=== PATIENT | female | born 1940 | race Caucasian/White ===

== ENCOUNTER 2021-12-16 10:48 | Outpatient (CLI) | payer MEDICARE, SELFPAY | END 2021-12-16 10:49 | disposition home or self-care (01) | LOC: NFLDREF 10:49 | PROVIDERS: Visit Provider Emergency Medicine | DX: N39.0 Urinary tract infection, site not specified (principal) | CPT/HCPCS: 87086; 87186 ==

== ENCOUNTER 2021-12-26 10:47 | Outpatient (CLI) | payer MEDICARE, SELFPAY | END 2021-12-26 10:48 | disposition home or self-care (01) | PROVIDERS: PCP Emergency Medicine; Visit Provider Emergency Medicine | DX: R35.0 Frequency of micturition (principal) | CPT/HCPCS: 87086 ==

== ENCOUNTER 2022-04-13 13:11 | Outpatient (RCR) | payer MEDICARE, SELFPAY ==
--- NOTE | 2022-04-09 15:36 | URNOTE ---
Request received for authorization for zoledronic acid (Reclast) ([id number]). Prior authorization not required per [facility] 2021 medical injection drug authorization list.
== END 2022-10-10 23:59 | disposition home or self-care (01) ==
LOC: CCIC 13:11
PROVIDERS: PCP Emergency Medicine; Visit Provider Emergency Medicine
DX: M81.0 Age-related osteoporosis without current pathological fracture (principal)
CPT/HCPCS: 96374; J3489

== ENCOUNTER 2022-04-16 09:20 | Outpatient (CLI) | payer MEDICARE, SELFPAY ==
[2022-04-16 14:20] LABS: Albumin* 4.7 g/dL (3.3-5.0); Chloride* 100 mmol/L (96-114); Sodium* 141 mmol/L (135-149)
[2022-04-16 14:21] LABS: Potassium* 4.2 mmol/L (3.6-5.1)
[2022-04-16 14:23] LABS: Alkaline Phosphatase* 96 U/L (40-150); Aspartate Amino Transferase* 38 U/L (12-35); Bilirubin Total* 0.6 mg/dL (0.1-1.5); Blood Urea Nitrogen* 25 mg/dL (7-30); Carbon Dioxide* 30 mmol/L (20-32); Creatinine* 0.8 mg/dL (0.5-1.5); Estimated Glomerular Filt Rate 74 ml/min; Glucose* 111 mg/dL (60-115); Total Protein* 7.3 g/dL (6.0-8.3)
[2022-04-16 14:24] LABS: Alanine Aminotransferase* 36 U/L (4-35); Calcium* 9.5 mg/dL (8.4-10.6)
[2022-04-16 14:56] LABS: Vitamin B12* 556 pg/mL (243-894)
[2022-04-17 02:54] LABS: Free T4 Free Thyroxine* 1.06 ng/dL (0.70-1.85)
== END 2022-04-16 09:21 | disposition home or self-care (01) ==
PROVIDERS: PCP Emergency Medicine; Visit Provider Emergency Medicine
DX: K21.9 Gastro-esophageal reflux disease without esophagitis (principal); I50.30 Unspecified diastolic (congestive) heart failure; R63.5 Abnormal weight gain
CPT/HCPCS: 80053; 82607; 84439; 84443

== ENCOUNTER 2022-04-21 11:09 | Outpatient (CLI) | payer MEDICARE, SELFPAY | END 2022-04-21 11:10 | disposition home or self-care (01) | LOC: FRMREF 04-24 10:01 | PROVIDERS: PCP Emergency Medicine; Visit Provider Family Medicine | DX: N39.0 Urinary tract infection, site not specified (principal) | CPT/HCPCS: 87086; 87186 ==

== ENCOUNTER 2022-05-04 11:03 | Outpatient (CLI) | payer MEDICARE, SELFPAY | END 2022-05-04 11:04 | disposition home or self-care (01) | LOC: FRMREF 05-11 13:54 | PROVIDERS: PCP Emergency Medicine; Visit Provider Family Medicine | DX: R82.90 Unspecified abnormal findings in urine (principal) | CPT/HCPCS: 87086; 87186 ==

== ENCOUNTER 2022-05-18 13:42 | Outpatient (CLI) | payer MEDICARE, SELFPAY | END 2022-05-18 13:43 | disposition home or self-care (01) | LOC: FRMREF 05-20 15:28 | PROVIDERS: PCP Emergency Medicine; Visit Provider Family Medicine | DX: N39.0 Urinary tract infection, site not specified (principal) | CPT/HCPCS: 87086 ==

== ENCOUNTER 2022-05-28 14:30 | Outpatient (CLI) | payer MEDICARE, SELFPAY | END 2022-05-28 14:31 | disposition home or self-care (01) | LOC: LKVREF 14:30 | PROVIDERS: PCP Emergency Medicine; Visit Provider Emergency Medicine | DX: N39.0 Urinary tract infection, site not specified (principal) | CPT/HCPCS: 87086; 87186 ==

== ENCOUNTER 2022-06-18 10:15 | Outpatient (CLI) | payer MEDICARE, SELFPAY | END 2022-06-18 10:16 | disposition home or self-care (01) | LOC: FRMREF 14:38 | PROVIDERS: PCP Emergency Medicine; Visit Provider Family Medicine | DX: N39.0 Urinary tract infection, site not specified (principal) | CPT/HCPCS: 87086 ==

== ENCOUNTER 2022-12-01 11:30 | Outpatient (CLI) | payer MEDICARE, SELFPAY ==
--- OUTSIDE RECORDS SUMMARY | 2022-12-02 01:50 | XMS_ITS | Continuity of Care Document ---
Author Name Unknown Organization [facility] Address [address] [address] [place] [address] Phone Care Team Providers Care Property Claims Manager Name Role Phone Shavonne Austin CRNA Unavailable Unavailable Allergies, Adverse Reactions, Alerts Substance Reaction Status Criticality morphine Itching Active No Information Influenza Virus Vaccines arm swelling Active No Information dipyridamole neck pain, nausea Active No Informa tion MEPERIDINE HCL rash Active No Informatio n PROCHLORPERAZINE MALEATE difficulty breathing Active No Information PRESERVATIVE FREE rash Resolved No Informa tion WARNIN allergy(ies) could not be collected because the type is not supported. Please contact the source practice for further details. Medications Medication Instructions Dosage Effective Dates (start - stop) Status Comments Crestor 20 mg tablet take 1 tablet by oral route every day 20 MG - Active Flonase Allergy Relief 50 mcg/actuation nasal spray,suspension inhale 2 spray by intranasal route every day in each nostril as needed as needed 100 MCG - Active Gaviscon 80 mg-14.2 mg chewable tablet take 3 tablet by oral route every day as needed as needed 3 tablet - Active spironolactone 25 mg tablet take 1 tablet by oral route every day 25 MG - Active furosemide 20 mg tablet take 1 tablet by oral route every day 20 MG - Active folic acid 800 mcg tablet take 1 tablet by oral route every day 0.8 MG - Active calcium citrate 200 mg (950 mg) tablet take 2 tablet by oral route 3 times every day for 1 day 2 tablet - Active latanoprost 0.005 % eye drops instill 1 drop by ophthalmic route every day into affected eye(s) in the evening 1.00 drop - Active pravastatin 40 mg tablet take 1 tablet by oral route every day 40 MG - Active NITROSTAT (unknown strength) place 1 tablet by sublingual route at the first sign of an attack; no more than 3 tabs are recommended within a 15 minute period. Not Available - Active metoprolol succinate ER 25 mg tablet,extended release 24 hr take 1 tablet by oral route every day 25 MG - Active Lo-Dose Aspirin 81 mg Tab, Delayed Release Take one tablet by mouth daily - Active MULTIVITAMINS (unknown strength) Take one tablet by mouth daily Not Available - Active TUMS (unknown strength) as needed Not Available - Active Carafate 1 gram Tab Use as directed - Acti ve Ativan 0.5 mg Tab as needed - Active Pepcid 20 mg tablet take 1 tablet by oral route 2 times every day 20 MG - No Longer Active Co Q-10 100 mg capsule take 1 tablet by oral route every day 1 tablet - No Longer Active FISH OIL (unknown strength) take 1 capsule by oral route 2 times every day Not Available - No Longer Active Procedures Procedure Date Colorectal Ca Screen Hi Risk I 20 Colonoscopy Flex; W/bx 1/mx Level Iv-surg Path Gross/micro 15 Sigmoidoscopy Flex; Dx (sep Pr 15 Offic/outpt E&m Estab Low-mod 0 G8447 Ko PH Monitor Ugi Endo; W/bx 1/mx Level Iv-surg Path Gross/micro 10 Offic/outpt E&m New Mod-hi G8447 Advance Directives Directive Yes / No Effective Date File Name No Information Encounters Encounter Description Practice Location Reason(s) For Visit Diagnoses Date Provider Providers Copied on Encounter [facility] JEREMY COLON [address] [address], [place], [id number], [place] tel:[phone] [facility] No Information 0 Norman Marvin. [address] [facility], [place], [place], [address], [place]. tel:[phone] Referring Provider: Araceli Medeiros, [address] [facility] [address], [place], [address] . tel:[phone] [facility], [address] [address], [place], [place], [address], [place] tel:[phone] [facility] Screening ColonoscopyPer keren history of colonic polypsEncounte r for screening for malignant neoplasm of colon 0 Miguel Charles. [address] [facility], [facility] [address], [place], [place], [address], [place]. [phone] Dawit Oliveira MD. tel:[phone] erring Provider: Referral Self. [facility], [address] [address], [place], [place], [address], [place] tel:[phone] [facility] No Information 0 Kirk Garces. [address] [facility], [address], [place], [place], [address], [place]. tel:[phone] [facility], [address] [address], [place], [address], [place] tel:[phone] [facility] Colon polypEncounter for screening for malignant neoplasm of colonBenign neoplasm of sigmoid colon 5 Edith Bowden. [address] [facility], [address], [place], [place], [address], [place]. tel:[phone] Referring Provider: Dawit Oliveira MD C, [address] , [place], [address]. tel:[phone] [facility], [address] [address], [place], [address], [place] tel:[phone] [facility] No Information 5 Kirk Garces. [address] [facility], [facility] [address], [place], [place], [address], [place]. tel:[phone] Referring Provider: Dawit Oliveira MD C, [address] [facility] [place], [address]. tel:[phone] Offic/outpt E&m Estab Low-mod [facility], [address] [address], [facility] [place] [address], [place] tel:[phone] [facility] check up, f/u to EGD (chief complaint) Chest Pain NosChest Pain Nos Jan- 5201 0 No Information Referring Provider: Wilfredo Ni, [address] [facility], [place], [address]. tel:[phone] [facility], [address] [address], [facility] [place], [address], [place] tel:[phone] [facility] No Information 0 Carlos Alberto Membreno. [address] [facility], [facility] [address], [place], [place], [address], [place]. tel:[phone] Referring Provider: Jluis Agrawal MD, [facility] [address], [place], [address] . tel:[phone] [facility], [address] [address], [facility] [place], [address], [place] tel:[phone] [facility] DuodenitisDuod enitis 0 Nghia Bazzi. [address] [facility], [facility] [address], [place], [place], [address], [place]. tel:[phone] Referring Provider: Jluis Agrawal MD, [address] [place] [address] [address], [place], [address] . tel:[phone] Offic/outpt E&m New Mod-hi [facility], [address] [address], [facility] [place], [address], [place] tel:[phone] [facility] Reflux symptoms (chief complaint) Chest Pain NosGastroesoph ageal Reflux 2-201 0 Link MD Bazzi. [address] [facility], [address] [address], [place], [place], [address], [place]. tel:[phone] Referring Provider: Wilfredo Rader MD C, [address] [facility], [place], [address]. tel:[phone] Family History Family Member Type Diagnosis Age At Onset Daughter Problem (finding) Alive and well First degree family history Problem (finding) GERD Brother Problem (finding) GERD Brother Problem (finding) unknown esophageal diso rder Mother Problem (finding) malignant neoplasm of k [place] Son Problem (finding) alcoholism First degree family history Problem (finding) No history of Crohn's Mother Problem (finding) First degree family history Problem (finding) No history of Ulcerative Colitis Son Problem (finding) Alive and well Father Problem (finding) Daughter Problem (finding) Irritable bowel disease First degree family history Problem (finding) No history of Cancer, colon First degree family history Problem (finding) Cancer -renal First degree family history Problem (finding) alcoholism Brother Problem (finding) Alive and well First degree family history Problem (finding) No Family history of No history of Colon Polyps Immunizations Vaccine Date Status Comments Seasonal, quadrivalent, recombinant, injectable influenza vaccine, preservative free administered Note: [facility] bi -directional interface ; Source: Other Registry Seasonal, quadrivalent, recombinant, injectable influenza vaccine, preservative free administered Note: [facility] bi -directional interface ; Source: Other Registry zoster vaccine recombinant administered N ote: [facility] bi-directional interface ; Source: Other Registry Seasonal, quadrivalent, recombinant, injectable influenza vaccine, preservative free administered Note: [facility] bi -directional interface ; Source: Other Registry zoster vaccine recombinant administered N ote: [facility] bi-directional interface ; Source: Other Registry Prevnar administered Note: [facility] bi-d irectional interface ; Source: Other Registry Havrix administered Note: [facility] bi-d irectional interface ; Source: Other Registry Energix Pediatric administered Note: [facility] bi-directional interface ; Source: Other Registry Prevnar 13 administered Note: [facility] bi-d irectional interface ; Source: Other Registry typhoid Vi capsular polysaccharide vaccine administered Note: [facility] bi-dir ectional interface ; Source: Other Registry Havrix administered Note: [facility] bi-d irectional interface ; Source: Other Registry Engerix-B administered Note: [facility] bi-d irectional interface ; Source: Other Registry Twinrix administered Note: [facility] bi-d irectional interface ; Source: Other Registry tetanus toxoid, reduced diphtheria toxoid, and acellular pertussis vaccine, adsorbed administered Note: [facility] b i-directional interface ; Source: Other Registry tetanus toxoid, reduced diphtheria toxoid, and acellular pertussis vaccine, adsorbed administered Note: [facility] b i-directional interface ; Source: Other Registry Pneumovax administered Note: [facility] bi-d irectional interface ; Source: Other Registry tetanus and diphtheria toxoi ds, adsorbed, preservative free, for adult use (2 Lf of tetanus toxoid and 2 Lf of diphtheria toxoid) administered Note: [facility] C bi- directional interface ; Source: Other Registry Payers Payer name Insurance type Covered democrat ID Authorshaniquea carlos eduardo(s) [employer] Medicare MB [id number] Social History Type Description Quantity Date Captured Comments Sex Female Smoking Status No Information Chief Complaint And Reason For Visit No Information Reason For Referral Reason For Referral No Information Plan Of Treatment Date Type Action Status No Information History Of Present Illness Encounter Date Complaint History Of Prese nt Illness No Information Functional Status Date Functional Assessmen t No Information Instructions Date Instruction Additional Infor mation Colon Cancer Prevention Related to Screening Colonoscopy Hemorrhoids Related to Scree masha Colonoscopy High Fiber Diet Related to Scree masha Colonoscopy Colon Polyps Related to Colon polyp Colon Cancer Prevention Related to Colon polyp Assessments Type Assessment Date No Information Patient Care Teams Name Effective Dates (start - stop) Status Members No Information
== END 2022-12-01 11:31 | disposition home or self-care (01) ==
LOC: NFLDREF 12-02 01:48
PROVIDERS: PCP Emergency Medicine; Referring Provider Emergency Medicine; Visit Provider Emergency Medicine
DX: Z13.29 Encounter for screening for other suspected endocrine disorder (principal); R79.89 Other specified abnormal findings of blood chemistry; R35.0 Frequency of micturition
CPT/HCPCS: 84443

== ENCOUNTER 2022-12-17 10:43 | Outpatient (CLI) | payer MEDICARE, SELFPAY | END 2022-12-17 10:44 | disposition home or self-care (01) | LOC: NFLDREF 12-18 19:17 | PROVIDERS: PCP Emergency Medicine; Referring Provider Emergency Medicine; Visit Provider Family Medicine | DX: N39.0 Urinary tract infection, site not specified (principal) | CPT/HCPCS: 87086; 87186 ==

== ENCOUNTER 2023-02-12 13:46 | Outpatient (CLI) | payer MEDICARE, SELFPAY ==
--- OUTSIDE RECORDS SUMMARY | 2023-02-14 07:42 | XMS_ITS | Continuity of Care Document ---
Author Name Unknown Organization [facility] Address [address] [address] [place] [address] Phone Care Team Providers Care Ginger Farmer Name Role Phone Shavonne Austin CRNA Unavailable [...] Encounter [facility] JEREMY COLON [address] [address], [place], [id number], [place] tel:[phone] [facility] No Information 0 Norman Marvin. [address] [facility], [address], [place], [place], [address], [place]. tel:[phone] Referring Provider: Araceli Medeiros, [address] [facility] [address], [place], [address] . tel:[phone] [facility], [address] [address], [place], [address], [place] tel:[phone] [facility] Screening ColonoscopyPer keren history of colonic polypsEncounte r for screening for malignant neoplasm of colon 0 Miguel Charles. [address] [facility], [facility] [address], [place], [place], [address], [place]. [phone] Dawit Oliveira MD. tel:[phone] erring Provider: Referral Self. [facility], [address] [address], [place], [place], [address], [place] tel:[phone] [facility] No Information 0 Kirk Garces. [address] [facility], [address], [place], [place], [address], [place]. tel:[phone] [facility], [address] [address], [place], [place], [address], [place] tel:[phone] [facility] Colon polypEncounter for screening for malignant neoplasm of colonBenign neoplasm of sigmoid colon 5 Edith Bowden. [address] [facility], [address], [place], [place], [address], [place]. tel:[phone] Referring Provider: Dawit Oliveira MD C, [address] , [place], [address]. tel:[phone] [facility], [address] [address], [place], [address], [place] tel:[phone] [facility] No Information 5 Kirk Garces. [address] [facility], [facility] [address], [place], [place], [address], [place]. tel:[phone] Referring Provider: Dawit Oliveira MD C, [address] [facility] [place], [address]. tel:[phone] Offic/outpt E&m Estab Low-mod [facility], [address] [address], [facility], [address], [place] tel:[phone] [facility] check up, f/u to EGD (chief complaint) Chest Pain NosChest Pain Nos Jan- 5201 0 No Information Referring Provider: Wilfredo Ni, [address] [facility], [place], [address]. tel:[phone] [facility], [address] [address], [facility] [place], [address], [place] tel:[phone] [facility] No Information 0 Carlos Alberto Membreno. [address] [facility], [facility] [address], [place], [place], [address], [place]. tel:[phone] Referring Provider: Jluis Agrawal MD, [facility] [address], [place], [address] . tel:[phone] [facility], [address] [address], [facility] [place], [address], [place] tel:[phone] [facility] DuodenitisDuod enitis 0 Nghia Bazzi. [address] [facility], [facility] [address], [place], [place], [address], [place]. tel:[phone] Referring Provider: Jluis Agrawal MD, [address] [place] [address] [address], [place], [address] . tel:[phone] Offic/outpt E&m New Mod-hi [facility], [address] [address], [facility], [address], [place] tel:[phone] [facility] Reflux symptoms (chief complaint) Chest Pain NosGastroesoph ageal Reflux 2-201 0 Link MD Bazzi. [address] [facility], [address] [address], [place], [place], [address], [place]. tel:[phone] Referring Provider: Wilfredo Rader MD C, [address] [facility], [place], [address]. tel:[phone] Family History Family Member Type Diagnosis Age [...] Registry Payers Payer name Insurance type Covered constitution party ID Authorshaniquea tigian(s) [employer] Medicare MB [id number] Social History Type Description Quantity Date Captured Comments Sex Female Smoking Status No Information Chief Complaint And Reason For Visit No Information Reason For Referral Reason For Referral No Information History Of Present Illness Encounter [...]
== END 2023-02-12 13:47 | disposition home or self-care (01) ==
LOC: NFLDREF 02-14 07:41
PROVIDERS: PCP Emergency Medicine; Referring Provider Emergency Medicine; Visit Provider Nurse Practitioner Family
DX: N39.0 Urinary tract infection, site not specified (principal); M54.2 Cervicalgia
CPT/HCPCS: 87086; 87186